=== PATIENT | female | born 1930 | race Caucasian/White ===

== ENCOUNTER 2017-02-12 15:37 | Observation (INO) | payer OTHER ==
--- NOTE | ~2017-02-12 | CO ---
Unit #: [id number] #: [id number] Patient: EDIE LOUISE [id number] [address] [place], [place] [address] [id number] I MR#: [id number] NAME: EDIE LOUISE ROOM: 337 Age: 86 Sex: F Admission Date: 02/12/2017 : 1930 Attending Physician: Hilton Vaughn M.D. Primary Care Physician: Wai Nicole D.O. Requesting Physician: Hilton Vaughn M.D. Consultation Date: 02/13/2017 CONSULTATION REPORT REASON FOR CONSULT Upper cervical spine stenosis. HISTORY OF PRESENT ILLNESS The patient is a very pleasant 86-year-old female with a history of rheumatoid arthritis and other medical history per chart. She reports a clicking sensation in her neck and also in her knees. Medications are as per chart. REVIEW OF SYSTEMS A 14-point review of systems is negative. PHYSICAL EXAMINATION GENERAL: She is awake and alert. MUSCULOSKELETAL: She has a windswept deformity in both hands consistent with long-term rheumatoid arthritis. Her neck is nontender. She does not have any motor or sensory deficits in her upper or lower extremities. There is no clonus. There is no hyperreflexia in her lower extremities. Mendez's would be difficult to evaluate due to the deformity in both hands. Gait is deferred. DIAGNOSTIC STUDIES IMAGING: MRI of the brain shows what appears to be spinal cord compression at the C1-2 level with an atlantodens interval measuring approximately 8 mm. This is presumably pannus formation not optimally visualized on a scan of the brain. CLINICAL IMPRESSION Upper cervical spinal stenosis. RECOMMENDATIONS A dedicated study of the cervical spine. An MRI has been ordered. I would high recommend that the patient be transferred to [facility]. I explained this to the patient because I believe that Dr. Briscoe, who is a neurosurgeon, has an interest in treating upper cervical spine lesions. The patient is at high risk for neurologic compromise. There is likely instability at the C1-2 level that could damage the spinal cord or brainstem. She may require an open mouth excision of the dens and posterior fixation. Dr. Briscoe has experience in this type of upper cervical spinal cord treatment. Thank you for asking me to see Miss Louise. Dictated by... Unit #: [id number] #: [id number] Patient: EDIE LOUISE Melisa Sneed/cameron TD: 02/13/2017 14:13 JOB #: [id number] CONSULTATION REPORT Page 1 of 1 X Arnold Dalton MD X CONSULTATION REPORT
--- NOTE | ~2017-02-12 | CR150 ---
[facility] A Service of [facility] & [facility] RADIOLOGY TEXT RESULTS PATIENT: EDIE PERSON LOCATION: [facility] 337-01 : 31 UNIT #: [id number] AGE: [address]: Hilton Vaughn MD SEX: F ORDER DR: [id number] [facility] [address] [facility]. [place], [place] [address] [id number] I MR#: [id number] Acc #: [id number] NAME: EDIE PERSON : 1930 SEX: F STUDY DATE/TIME: 02/12/2017 17:56 UNIT: CEDOF ROOM: [id number] STUDY DESCRIPTION: CR Hip Min 2 Views Lt Attending Physician: Dawn Haji M.D. Ordering Physician: Dawn Haji M.D. Primary Care Physician: Wai Nicole D.O. MEDICAL IMAGING REPORT This report is preliminary unless electronic signature is present EXAM Left hip HISTORY An 86-year-old female fell in bathroom today, weakness, pain both hips FINDINGS AP pelvis and frog lateral view left hip demonstrates no fracture or dislocation. No significant arthropathy. Extensive arterial vascular calcifications noted. Degenerative disc changes seen in the lower lumbar spine. IMPRESSION Negative left hip Dictated by... Oumou Gates M.D. THIS IS AN ELECTRONICALLY VERIFIED REPORT Oumou Gates M.D. at 02/13/2017 10:59 PM Seth TD: 02/12/2017 23:01 JOB #: [id number] MEDICAL IMAGING REPORT Page 1 of 1 COPY
--- NOTE | ~2017-02-12 | MR18 ---
[facility] A Service of [facility] & [facility] RADIOLOGY TEXT RESULTS PATIENT: EDIE PERSON LOCATION: [facility] 337-01 : 31 UNIT #: [id number] AGE: [address]: Hilton Vaughn MD SEX: F ORDER DR: [id number] [facility] [address]. [place], [place] [address] [id number] MR#: [id number] Acc #: [id number] NAME: EDIE PERSON : 1930 SEX: F STUDY DATE/TIME: 02/12/2017 20:38 UNIT: CEDOF ROOM: 97005 STUDY DESCRIPTION: MR Brain Wo Contrast Attending Physician: Dawn Haji M.D. Ordering Physician: Dawn Haji M.D. Primary Care Physician: Wai Nicole D.O. MRI CENTER REPORT This report is preliminary unless electronic signature is present. EXAM MRI of the brain without HISTORY Hypertension, hyperlipidemia, dementia, immobility presents with altered mental status and abnormal speech. Patient unable to give history because patient is aphasic. History from chart. No cancer history provided. COMMENT MRI of the brain was attempted without contrast using routine 1.5T imaging technique. The study is limited by motion. There is no evidence for a recent ischemic insult on the diffusion series. There is generalized atrophy. Partly seen in the upper cervical spine is considerable degenerative disease. This includes abnormal widening of the anterior atlantodental interval to about 9 mm with some probable abnormal tissue possibly pannus. The posterior arch of C1 is anteriorly displaced with this abnormality and there is approximately moderate flattening of the upper cervical cord to the cervicomedullary junction. I would recommend correlation with a CT scan of the cervical spine if further intervention is contemplated and neurosurgical consultation to determine management options. There is also a component of invagination of the dens into the foramen magnum. The alignment of the clivus and dens is also abnormal. Dens protrudes about 6 mm above the foramen magnum. There is no MRI evidence for intracranial hemorrhage. No gross extraaxial fluid collection. Major intracranial flow voids are grossly maintained. Probably some fluid or inflammatory change in the left side mastoid air cells. Patient has had cataract surgery bilaterally. Moderate white matter disease nonspecific likely due to small vessel disease. Lesions are seen in subcortical deep and periventricular white matter. There is an edematous appearance to the marrow at the level of C2 adjacent to the anterior atlantodental interval. This suggests edema and this would be STS. [facility] A Service of [facility] & [facility] RADIOLOGY TEXT RESULTS PATIENT: EDIE PERSON LOCATION: [facility] 337-01 : 31 UNIT #: [id number] AGE: [address]: Hilton Vaughn MD SEX: F ORDER DR: consistent with some type of inflammatory arthritis such as rheumatoid arthritis. Preliminary wet reading provided overnight by Dr. Higuera 21:14. IMPRESSION 1. No evidence for a recent ischemic insult on the diffusion series. 2. There is abnormal widening of the anterior atlantodental interval to about 9 mm and with this disruption there is anterior migration of the ring of C1 with respect to the odontoid such that there is moderate cord flattening at the level of the upper cervical cord at the cervicomedullary junction. Additionally, there is an abnormal alignment between the clivus and the upper dens. The dens has migrated about 6 mm cephalad through the foramen magnum. Please correlate for any history of underlying inflammatory arthritis such as rheumatoid arthritis. Findings are best pursued with a CT scan of the cervical spine. If patient is a candidate for intervention, suggest neurosurgical consultation to determine management options. ADDENDUM Efforts are currently underway to relay this information verbally to Dawn Haji or covering practitioner. STAT * RESULT I spoke to the covering MD within the half hour. Dictated by... Merle Patel M.D. THIS IS AN ELECTRONICALLY VERIFIED REPORT Merle Patel M.D. at 02/13/2017 9:29 AM JULITA/paulino TD: 02/13/2017 08:25 JOB #: [id number] MRI CENTER REPORT Page 1 of 1 COPY
--- NOTE | ~2017-02-12 | CT71 ---
[facility] A Service of [facility] RADIOLOGY TEXT RESULTS PATIENT: EDIE PERSON LOCATION: CEDOF : 31 UNIT #: [id number] AGE: [address]: Dawn Haji MD SEX: F ORDER DR: [id number] [facility] [address] [place], [place] [address] [id number] MR#: [id number] Acc #: [id number] NAME: EDIE PERSON : 1930 SEX: F STUDY DATE/TIME: 02/12/2017 15:44 UNIT: URIEL ROOM: STUDY DESCRIPTION: CT Head Wo Contrast Attending Physician: Wai Lui M.D. Ordering Physician: Wai Lui M.D. Primary Care Physician: Wai Nicole D.O. MEDICAL IMAGING REPORT This report is preliminary unless electronic signature is present EXAM CT scan of the head without contrast HISTORY Fall in bathroom today with weakness and possible head injury. TECHNIQUE Unenhanced images were obtained through the brain. This CT exam was performed with one or more of the following radiation dose reduction techniques: automatic exposure control, adjustment of mA and/or kV according to patient size, and iterative reconstruction. FINDINGS There is mild generalized atrophy. There are no masses or extraaxial fluid collections or hemorrhage. Slightly prominent space between the odontoid process and the C1 arch is again noted but unchanged from 08/27/2016. IMPRESSION Generalized atrophy. No acute findings. Dictated by... Terrence Ahn M.D. THIS IS AN ELECTRONICALLY VERIFIED REPORT Terrence Ahn M.D. at 02/13/2017 6:05 AM FEL/pcl TD: 02/12/2017 18:58 [facility] A Service [facility] RADIOLOGY TEXT RESULTS PATIENT: EDIE PERSON LOCATION: CEDOF : 31 UNIT #: [id number] AGE: [address]: Dawn Haji MD SEX: F ORDER DR: JOB #: [id number] MEDICAL IMAGING REPORT Page 1 of 1 COPY
--- NOTE | ~2017-02-12 | DS ---
Unit #: [id number] #: [id number] Patient: EDIE PERSON [id number] [address] [address] [id number] I MR#: [id number] NAME: EDIE PERSON ROOM: 337 Age: 86 Sex: F Admission Date: 02/12/2017 : 1930 Discharge Date: 02/13/2017 Attending Physician: Hilton Vaughn M.D. Primary Care Physician: Wai Nicole D.O. DISCHARGE SUMMARY DATE OF TRANSFER TO [facility] February 13, 2017 DISCHARGE DIAGNOSES 1. Odontoid fracture. 2. Toxic metabolic encephalopathy. 3. Gram-negative eunice urinary tract infection. 4. Frequent falls. 5. Macrocytic anemia. 6. History of pulmonary embolism, on Xarelto. 7. History of transient ischemic attack. 8. Essential hypertension. 9. Dyslipidemia. 10. Rheumatoid arthritis. 11. Dementia. 12. History of immobility syndrome. 13. Hypothyroidism. [employer] Dr. Dalton of Spine Surgery. PROCEDURES None. DIAGNOSTIC STUDIES CURRENT LABORATORY: BMP with glucose of 91, BUN 29, creatinine 1, sodium 143, potassium 4.5, chloride 113, CO2 of 23, calcium 8.7, total protein 6.4, albumin 3.3, total bilirubin 0.7, AST 24, ALT 16, and alkaline phosphatase 36. CPK is 109. B12 is 1140, folate is greater than 23.6, and TSH is 2.84. Alcohol was not assessed. PT is 10.9, INR 1, and PTT is 31.5. Troponin was undetectable. CBC with WBC of 5.1, RBC 2.96, hemoglobin 9.9, hematocrit 30, MCV 101.2, MCH 33.5, MCHC 33.1, RDW 12.3, platelets 172,000, and MPV is 8.4. Currently, patient's urine culture shows gram-negative eunice. It is greater than 100,000 colony count. IMAGING: Chest x-ray on February 12, 2017, findings: Cardiomegaly without evidence of vascular congestion. No pneumothorax or pleural effusion seen. No displaced rib fractures. Advanced degenerative changes involving the shoulders bilaterally. Head CT on February 12, 2017, impression: Generalized atrophy. No acute findings. X-ray of the left hip on February 12, 2017, impression: Negative left hip. X-ray of the right hip, impression: Osteopenia. No visible fracture. MRI of the brain on February 12, 2017, impression: No evidence of recent ischemic insulin on the diffusion series. There is abnormal widening of the anterior Unit #: [id number] #: [id number] Patient: EDIE PERSON atlantodental interval to about 9 mm and with this disruption there is anterior migration of the ring of C1 with respect to the odontoid such that there is moderate cord flattening at the level of the upper cervical cord at the cervicomedullary junction. Additionally, there is an abnormal alignment between the clivus and the upper dens. The dens has migrated about 6 mm cephalad through the foramen magnum. HOSPITAL COURSE The patient is an 86-year-old female with a past medical history of dementia, pulmonary embolism, chronically anticoagulated for previous pulmonary embolism with Xarelto, history of TIA, essential hypertension, hyperlipidemia, rheumatoid arthritis, and immobility syndrome, who was brought to the emergency department due to a fall at home. History was obtained from chart review and the ER physician. The patient's son-in-law, Charlie, stated that patient has had increasing memory loss for the past year to 18 months. She was recently hospitalized on August 27, 2016, for altered mental status, sepsis, and UTI, as well as pneumonia. Per Discharge Summary, she was alert and oriented x2. The patient is saying nothing more than okay and no on questioning. In the emergency department, head CT was normal. Chest x-ray was unremarkable as well. She did seem to have a UTI. She was admitted and was treated for toxic metabolic encephalopathy with a UTI. An MRI of the head was done which showed an odontoid fracture. Mr. Dalton, of Spine Surgery, was consulted, who recommended that patient have an MRI of her cervical spine and then be transferred to [facility] where Dr. Briscoe, who has more experience with upper cervical spine cord treatment, will be treating Miss Carpenter. She did not get her dose of Xarelto this morning. Actually, she has not had any of her oral medications as there was concern for dysphagia. Patient has been n.p.o. since then. Patient's blood pressure has been stable without the need of antihypertensive. Her blood pressures have ranged between systolic of 98 to upper of 148 and diastolic ranging from 53 to 80. Patient is on room air. She is not hypoxic, and vital signs are stable. I have spoken with Dr. Call, my counterpart at [facility], who has agreed to accept patient to a telemetry bed. Patient will be discharged there in stable condition after she gets her MRI of the spine done. Dr. Dalton knows about this and recommends this, and any further care will be done there. CONDITION Stable. DISPOSITION Transfer to [facility]. ACTIVITY Patient should have bedrest with a neck collar until she can be assessed by Spine Surgery. DISCHARGE MEDICATIONS Patient is currently n.p.o. She is getting Rocephin 1 gram q.24 hours dosed at 8 o'clock. Her medicines are held until she is evaluated by Speech Therapy. Synthroid 0.025 mg orally daily, Aricept 5 mg orally at bedtime, Zestril 20 mg orally daily, and multivitamin 1 tablet orally Unit #: [id number] #: [id number] Patient: EDIE PERSON daily. Xarelto is held at 20 mg orally daily. Dictated by... Lai Kirby PA-C for Melisa Josue/cameron TD: 02/13/2017 18:50 JOB #: [id number] DISCHARGE SUMMARY Page 1 of 1 X X DISCHARGE SUMMARY
--- NOTE | ~2017-02-12 | HP ---
Unit #: [id number] #: [id number] Patient: EDIE PERSON [id number] [facility]. [place], [place] [address] [id number] E MR#: [id number] NAME: EDIE PERSON ROOM: Age: 86 Sex: F Admission Date: 02/12/2017 : 1930 Attending Physician: Wai Lui M.D. Primary Care Physician: Wai Nicole D.O. HISTORY AND PHYSICAL CHIEF COMPLAINT Urinary tract infection, fall. HISTORY OF PRESENT ILLNESS The patient is an 86-year-old female with a past medical history of dementia, pulmonary embolism, chronic anticoagulation, TIA, hypertension, hyperlipidemia, rheumatoid arthritis, and immobility, who was brought to the emergency department via EMS for evaluation of the above. History is obtained from chart review and discussion with ER staff, as well as telephone conversation with the patient's son-in-law, Charlie. The patient has apparently had increasing memory issues for the past year to 18 months. The patient was hospitalized at [facility] August 27, 2016, for altered mental status, sepsis, urinary tract infection, and pneumonia. Per the Discharge Summary, she was alert and oriented x2 at the time of discharge. Per my conversation with the patient's son-in-law, she at times is not oriented to person, place, or time. He states that she is able to use words but not necessarily carry on a conversation. In the emergency department, the only words she is using are okay and no. The son-in-law states that she would typically use more words than this. She has apparently been refusing to shower as well. In the emergency department, a CT of the head was done and showed nothing acute. Chest x-ray shows nothing acute. Laboratory is essentially unremarkable. Urinalysis shows a possible urinary tract infection. She is being admitted to [facility] for evaluation and further treatment. PAST MEDICAL HISTORY 1. Admission to [facility] August 27, 2016, for sepsis secondary to urinary tract infection and pneumonia, although review of urine culture from August 27 ultimately showed no growth after 48 hours. 2. Pulmonary embolus, on chronic anticoagulation with Xarelto. 3. Transient ischemic attack. 4. Hypertension. 5. Hyperlipidemia. 6. Rheumatoid arthritis. 7. Dementia. 8. Immobility. 9. Hypothyroidism. PAST SURGICAL HISTORY 1. Right hand surgery. Unit #: [id number] #: [id number] Patient: EDIE PERSON 2. Cataract surgery. 3. Hysterectomy. SOCIAL HISTORY The patient lives with her grandson. She has a wheelchair. She is immobile. There is no tobacco or alcohol use. FAMILY HISTORY Noncontributory secondary to age. ALLERGIES No known allergies. HOME MEDICATIONS 1. Multivitamin daily. 2. Xarelto 20 mg daily. 3. Simvastatin 40 mg daily. 4. Levothyroxine 25 mcg daily. 5. Lisinopril 20 mg daily. 6. Aricept 5 mg at bedtime. REVIEW OF SYSTEMS A complete review of systems is negative except as indicated in the History of Present Illness. Per the patient's son-in-law, the patient has had frequent falls with the last fall being this morning in the bathroom. It is unclear the circumstances of the fall. Additionally, she has been complaining of hip pain. PHYSICAL EXAMINATION VITAL SIGNS: Temperature is 97.4, pulse 97, respirations 14, blood pressure 171/77, and oxygen saturation is 98% on room air. GENERAL: Patient is a female who is awake and alert. She is attentive. HEENT: Head is atraumatic. Mucous membranes are moist. NECK: Supple. Trachea is midline. CARDIOVASCULAR: Regular rate and rhythm. LUNGS: Clear to auscultation bilaterally with no increased work of breathing. ABDOMEN: Soft and nontender with bowel sounds present in all four quadrants. EXTREMITIES: Nontender with no pedal edema. NEUROLOGIC: Patient is awake and alert. She is moving all extremities. The only words she uses are "no" and "okay." She follows some commands. PSYCHIATRIC: Difficult to assess. SKIN: Skin of examined areas is warm and dry. DIAGNOSTIC STUDIES LABORATORY: Complete blood count notable for hemoglobin and hematocrit of 10.9 and 32.8, respectively, MCV is 100, and RDW is 12.4. INR is 1. Troponin is less than 0.05. Comprehensive metabolic panel notable for glucose of 126 and BUN and creatinine 36 and 1.1, respectively. Urinalysis notable for nitrite positive, 4+ bacteria, and no squamous cells. IMAGING: Chest x-ray shows nothing acute. CT of the head shows nothing acute. CARDIOLOGY: EKG shows normal sinus rhythm with a rate of 100 beats per Unit #: [id number] #: [id number] Patient: EDIE PERSON minute. ASSESSMENT The patient is an 86-year-old female with: 1. Altered mental status. 2. Frequent falls. 3. Possible urinary tract infection. Review of urine cultures from [facility] show that the patient had a urine culture on August 27, 2016, that grew nothing after 48 hours. There was also a urine culture from May 05, 2016, that showed no growth after 48 hours. 4. Macrocytic anemia. The patient's hemoglobin was 11.8 on August 29, 2016. It is 10.9 today. 5. History of pulmonary embolism, on chronic anticoagulation with Xarelto. 6. History of transient ischemic attack. 7. Hypertension. 8. Hyperlipidemia. 9. Rheumatoid arthritis. 10. Dementia. 11. Immobility. 12. Hypothyroidism. PLAN 1. Admit for observation to intermediate level. 2. N.p.o. until Speech evaluation. 3. Speech Therapy to evaluate and treat. 4. Normal saline at 75 mL/hour. 5. Bedrest. 6. Fall precautions. 7. Bilateral hip series for further evaluation of frequent falls and hip pain. 8. Blood cultures x2. 9. Urine culture and sensitivity on urine in the lab. 10. Rocephin 1 gram IV daily pending results of urine culture. 11. Neuro checks. 12. Check MRI of the brain without contrast for further evaluation of altered mental status and abnormal speech. 13. TSH, B12, and folate. 14. SCDs for DVT prophylaxis. 15. Repeat labs in the morning. 16. Additional workup and consultants based on above. 1. Dictated by Melisa Marie/cameron TD: 02/12/2017 18:40 JOB #: [id number] Unit #: [id number] #: [id number] Patient: EDIE PERSON HISTORY AND PHYSICAL Page 1 of 1 X Dawn Haji MD X HISTORY AND PHYSICAL
--- NOTE | ~2017-02-12 | CR72 ---
[facility] Service of [facility] RADIOLOGY TEXT RESULTS PATIENT: EDIE PERSON LOCATION: [facility] : 31 UNIT #: [id number] AGE: [address]: Wai Lui MD SEX: F ORDER DR: [id number] [facility] [address] [place], [place] [address] [id number] E MR#: [id number] Acc #: [id number] NAME: EDIE PERSON : 1930 SEX: F STUDY DATE/TIME: 02/12/2017 14:38 UNIT: [facility] ROOM: STUDY DESCRIPTION: CR Chest Single View Portable Attending Physician: Wai Lui M.D. Ordering Physician: Wai Lui M.D. Primary Care Physician: Wai Nicole D.O. MEDICAL IMAGING REPORT This report is preliminary unless electronic signature is present EXAM Portable chest radiograph INDICATIONS Shortness of breath started today. Patient also fell in the bathroom today. COMPARISON STUDIES Comparison made to a prior exam from 08/28/2016. FINDINGS Cardiomegaly is identified without any evidence of vascular congestion. Lung volumes appear diminished, likely secondary to poor expiratory effort. No new pneumothorax or pleural effusion is seen. I do not see any displaced rib fractures. Patient does have advanced degenerative changes involving the shoulders bilaterally. Dictated by... Willa Foley M.D. THIS IS AN ELECTRONICALLY VERIFIED REPORT Willa Foley M.D. at 02/12/2017 5:09 PM AFF/pcl TD: 02/12/2017 16:57 JOB #: [id number] MEDICAL IMAGING REPORT Page 1 of 1 COPY
--- NOTE | ~2017-02-12 | MR32 ---
[facility] A Service of [facility] & [facility] RADIOLOGY TEXT RESULTS PATIENT: EDIE PERSON LOCATION: A 337- : 31 UNIT #: [id number] AGE: [address]: Hilton Vaughn MD SEX: F ORDER DR: [id number] [facility] [address]. [place], [place] [address] [id number] I MR#: [id number] Acc #: [id number] NAME: EDIE PERSON : 1930 SEX: F STUDY DATE/TIME: 02/13/2017 19:15 UNIT: A U ROOM: [facility] STUDY DESCRIPTION: MR Cervical Wo Contrast Attending Physician: Hilton Vaughn M.D. Ordering Physician: Hilton Vaughn M.D. Primary Care Physician: Wai Nicole D.O. MRI CENTER REPORT This report is preliminary unless electronic signature is present. EXAM MRI of the cervical spine HISTORY An 86-year-old female with abnormal craniocervical junction. COMPARISON STUDIES MRI of the brain 02/12/[address] cervical spine 02/13/17 FINDINGS Multiplanar, multiecho imaging was performed of the cervical spine utilizing a high field magnet and dedicated protocol. 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 This, however, is not significantly changed when compared to the patient's prior CT angiogram of 08/27/16. There is abnormal anterior subluxation of C1 relative to C2 with widening of the atlantoaxial distance. This also appears chronic, and based on the CT of the cervical spine, there is apparent fusion across the lateral masses of C2 with C1. There is heterogeneous marrow signal within the odontoid, but no evidence of an odontoid fracture. There is abnormal anterior subluxation of C3 on C4, and retrolisthesis of C4 on C5. Due to the abnormal alignment at the atlantoaxial joint and the basilar invagination, there is marked mass effect of the odontoid on the upper cervical cord with essentially no normal CSF space around the cord at this level. No focal cord changes are identified. No syrinx or mass lesions seen. At C2-3, the disk space is maintained. No spinal or foraminal stenosis. At C3-4, there is anterolisthesis of C3 on C4 with mild left C3-4 foraminal stenosis secondary to uncovertebral osteophyte. At C4-5, there STS. [facility] A Service of [facility] & [facility] RADIOLOGY TEXT RESULTS PATIENT: EDIE PERSON LOCATION: C3A 337-01 : 31 UNIT #: [id number] AGE: [address]: Hilton Vaughn MD SEX: F ORDER DR: is broadbased posterior disk protrusion and osteophyte contributing to mild central canal stenosis and bilateral foraminal stenosis. At C5-6, there is also degenerative disk changes with broadbased posterior disk protrusion and osteophyte contributing to mild central canal stenosis and mild bilateral foraminal stenosis. Degenerative disk change seen at C6-7, but no significant spinal or foraminal stenosis. The C7-T1 disk space is unremarkable. Paravertebral soft tissues unremarkable. IMPRESSION 1. 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 This, however, does not appear significantly changed from the patient's prior studies dating back to at least August of 2016, and there appears to be fusion across the C1, C2 articulation based on the CT scan. 2. Heterogeneous marrow signal within the odontoid, but no evidence of an odontoid fracture. 3. Due to the basilar invagination and malalignment at the atlantoaxial joint, there is marked kinking of the upper cervical cord at the cervical medullary junction, but no obvious myelomalacia is identified. Again, this contributes to a severe stenosis at this level. 4. Better appreciated on the stir images, there is some stir hyperintensity within the upper cervical cord at this level, and this may support at least some degree of myelomalacia. Again, this is better seen on the stir sequences. 5. Multilevel degenerative disk changes and cervical malalignment as detailed above. This is most likely on the basis of degenerative disk disease and facet disease. Please see above for lfjht-xu-osiat details. Dictated by... Oumou Gates M.D. THIS IS AN ELECTRONICALLY VERIFIED REPORT Oumou Gates M.D. at 02/14/2017 3:34 PM Seth TD: 02/14/2017 07:09 JOB #: [id number] MRI CENTER REPORT Page 1 of 1 COPY
--- NOTE | ~2017-02-12 | CT52 ---
[facility] A Service of [facility] & [facility] RADIOLOGY TEXT RESULTS PATIENT: EDIE PERSON LOCATION: [facility] 337- : 31 UNIT #: [id number] AGE: [address]: Hilton Vaughn MD SEX: F ORDER DR: [id number] [facility] [address] [place], [place] [address] [id number] I MR#: [id number] Acc #: [id number] NAME: EDIE PERSON : 1930 SEX: F STUDY DATE/TIME: 02/13/2017 11:41 UNIT: [address] ROOM: [facility] STUDY DESCRIPTION: CT Cervical Spine Wo Cont Attending Physician: Hilton Vaughn M.D. Ordering Physician: Hilton Vaughn M.D. Primary Care Physician: Wai Nicole D.O. MEDICAL IMAGING REPORT This report is preliminary unless electronic signature is present EXAM Cervical spine CT without contrast 02/13/[address] cervical spine CT without contrast with multiplanar reformats. This CT exam was performed with one or more of the following radiation dose reduction techniques: automatic exposure control, adjustment of mA and/or kV according to patient size, and iterative reconstruction. COMPARISON STUDIES Brain MRI dated 02/12/[address] angiogram dated 11/27/2015. HISTORY Abnormal appearance of the C1-C2 junction on brain MRI dated 02/12/2017. CT cervical spine suggested for further evaluation. FINDINGS There is atlantodental widening, and prominent basilar impression of the dens into the foramen magnum. There is a slight anterolisthesis at C3-C4 and at C6-C7. There is no acute fracture at any level. The C1 anterior arch is intact and it appears there may be chronic fusion across the C1-C2 articular mass joint. The C1 neural arch is normally intact. The paraspinous tissues are remarkable for dense atherosclerotic vascular calcifications at the carotid bifurcations. The visualized lung apices are unremarkable. Findings are probably unchanged since a head and neck CT angiogram of 08/27/2016. No other substantial spinal canal stenosis is suggested, though there is mild narrowing at several levels. [facility] A Service of [facility] & [facility] RADIOLOGY TEXT RESULTS PATIENT: EDIE PERSON LOCATION: C3A 337-01 : 31 UNIT #: [id number] AGE: [address]: Hilton Vaughn MD SEX: F ORDER DR: At C3-C4, there is probably moderate left foraminal narrowing and at C4-C5, there is probably severe right and [id number] left foraminal narrowing. At C5-C6, there is mild right and bhnwpsho-hv-lynrxw left foraminal narrowing. 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 This is probably actually stable since at least August 2016 with similar findings seen on the head and neck CT angiogram of that date. No fracture or acute abnormality is seen. Degenerative changes at other levels are demonstrated as well. Dictated by... Zain Jain M.D. THIS IS AN ELECTRONICALLY VERIFIED REPORT Zain Jain M.D. at 02/14/2017 5:03 PM TEV/pcl TD: 02/13/2017 22:02 JOB #: [id number] MEDICAL IMAGING REPORT Page 1 of 1 COPY
--- NOTE | ~2017-02-12 | CR151 ---
[facility] A Service of [facility] & [facility] RADIOLOGY TEXT RESULTS PATIENT: EDIE PERSON LOCATION: [facility] 337-01 : 31 UNIT #: [id number] AGE: [address]: Hilton Vaughn MD SEX: F ORDER DR: [id number] [facility] [address] [place], [place] [address] [id number] I MR#: [id number] Acc #: [id number] NAME: EDIE PERSON : 1930 SEX: F STUDY DATE/TIME: 02/12/2017 17:57 UNIT: CED ROOM: [id number] STUDY DESCRIPTION: CR Hip Min 2 Views Rt Attending Physician: Dawn Haji M.D. Ordering Physician: Dawn Haji M.D. Primary Care Physician: Wai Nicole D.O. MEDICAL IMAGING REPORT This report is preliminary unless electronic signature is present EXAM Right hip. HISTORY Weakness and pain both hips. Fell today in bathroom. FINDINGS AP pelvis and frog lateral view of the right hip demonstrates no fracture or dislocation. Generalized osteopenia. Degenerative change lower lumbar spine. Diffuse arteriovascular calcifications. IMPRESSION Osteopenia. No visible fracture. Dictated by... Oumou Gates M.D. THIS IS AN ELECTRONICALLY VERIFIED REPORT Oumou Gates M.D. at 02/13/2017 10:59 PM JONNY/francia TD: 02/12/2017 23:01 JOB #: [id number] MEDICAL IMAGING REPORT Page 1 of 1 COPY
--- NOTE | ~2017-02-12 | EKG ---
PATIENT: EDIE PERSON UNIT #: [id number] Ventricular Rate: 100 BPM Atrial Rate: 100 BPM P-R Interval: 154 ms QRS Duration: 60 ms Q-T Interval: 316 ms QTC Calculation(Bezet): 407 ms P Balaton: 53 degrees Calculated R Balaton: 13 degrees Calculated T Balaton: 35 degrees Diagnosis Line: Normal sinus rhythm Diagnosis Line: Normal ECG Diagnosis Line: When compared with ECG of 27-AUG-2016 16:10, Diagnosis Line: ST no longer elevated in Lateral leads Diagnosis Line: Confirmed by DARYA CARRIZALES MD ([id number]) on 02/12/2017 Diagnosis Line: 11:07:16 PM INTERPRETING MD: ALL CRAIG
[2017-02-12 15:06] LABS: BASOPHIL% 0.3 % (0-2.5); EOSINOPHIL% 0.1 % (0.0-7.0); HEMATOCRIT 32.8 % (35.0-45.0); HEMOGLOBIN 10.9 gm/dL (12.0-16.0); LYMPHOCYTE# 0.4 X10e3 (1.0-3.5); LYMPHOCYTE% 5.6 % (17.0-45.0); MEAN CORPUSCULAR HEMOGLOBIN 33.2 PG (28-34); MEAN CORPUSCULAR HGB CONC 33.2 g/dL (30-36); MEAN PLATELET VOLUME 8.4 FL (6.5-11.5); MONOCYTE# 0.2 X10e3 (0-1.0); MONOCYTE% 2.7 % (3.0-12.0); NEUTROPHIL# 7.2 X10e3 (1.5-7.1); NEUTROPHIL% 91.3 % (40-75); PLATELET COUNT 194 X10e3 (140-420); RED BLOOD COUNT 3.28 X10e (3.90-5.30); RED CELL DISTRIBUTION WIDTH 12.4 % (11.0-15.5); WHITE BLOOD COUNT 7.9 X10e3 (4.0-10.5)
[2017-02-12 15:16] LABS: PROTHROMBIN TIME (PATIENT) 10.9 SECONDS (9.6-11.5)
[2017-02-12 15:21] LABS: DIFF IND NO
[2017-02-12 15:31] LABS: BILIRUBIN, DIRECT 0.1 mg/dL (0.0-0.2); BILIRUBIN,INDIRECT 0.2 mg/dL (0.0-0.9); BILIRUBIN,TOTAL 0.3 mg/dL (0.2-2.0); BUN/CREATININE RATIO 32.72; CALCIUM SERUM 9.4 mg/dL (8.4-10.2); CREATININE SERUM 1.1 mg/dL (0.6-1.4); GLOM FILT RATE Estimated 45.8 mL/min (>60); POTASSIUM 5.1 mmol/L (3.5-5.1); PROTEIN TOTAL SERUM 7.7 g/dL (6.0-8.3)
[2017-02-12 15:32] LABS: POC - CKMB 1.5 ng/mL (0.0-7.9); POC - TROPONIN <0.05 ng/mL (<=0.05)
[~2017-02-12 15:37] MED LIST: ALBUTEROL17 GM INH; ASPIRIN EC81 M1 PO; BONIVA150 MG; CALTRATE 600+D PO; CALTRATE PLUS T1 TAB; COUMADIN2.5 MG PO; COUMADIN5 MG PO; COUMADIN7.5 MG PO; FOLIC ACID; HYDROCODON-ACE1 EAC9 PO; LEVAQUIN250 MG PO; LEVOFLOXACIN500 MG PO; LOVENOX SUBQ; METHOTREXATE2.5 MG; MULTI VITAMIN1 EACH PO; MULTI-VITAMIN1 TAB; PREDNISONE10 MG PO; PRINIVIL20 M1 PO; VITAMIN D-32000 UNI1 PO; VYTORIN 10/10 T1 TAB; ZOCOR80 MG PO
[2017-02-12 15:45] LABS: URINE SOURCE CLEAN CATCH
[2017-02-12 15:52] LABS: URINE APPEARANCE CLEAR; URINE BILIRUBIN NEG (NEG); URINE BLOOD NEG (NEG); URINE COLOR YELLOW; URINE GLUCOSE NEG (NEG); URINE KETONE TRACE (NEG); URINE LEUKOCYTE ESTERASE NEG (NEG); URINE NITRATE POS (NEG); URINE PROTEIN NEG (NEG); URINE SPECIFIC GRAVITY 1.018 (1.003-1.035); URINE UROBILINOGEN 0.2 MG/DL (NEG)
[2017-02-12 15:55] LABS: CULTURE INDICATED? YES; U HYALINE CASTS AUWI 0-2 /[LPF]; URBCS1 AUWI 0-2 /[HPF] (0-2); URINE BACTERIA AUWI 4+ (NEGATIVE); URINE SQUAMOUS EPITHELIAL CELL NONE SEEN /[HPF]
[2017-02-12] MEDS ORDERED: XARELTO20 MG PO (16:39)
[2017-02-12] MEDS ORDERED: SIMVASTATIN40 MG PO (16:39)
[2017-02-12] MEDS ORDERED: MULTI VITAMIN1 EACH PO (16:39)
[2017-02-12] MEDS ORDERED: ARICEPT5 M1 PO (16:40)
[2017-02-12] MEDS ORDERED: LEVOTHYROXINE25 MCG PO (16:40)
[2017-02-12] MEDS ORDERED: LISINOPRIL20 MG PO (16:40)
[2017-02-12 18:31] LABS: CPK (CREATINE PHOSPHOKINASE) 109 IU/L (26-140)
[2017-02-12 18:36] LABS: FOLATE (FOLIC ACID) >23.6 ng/mL (>5.8)
[2017-02-13 04:37] LABS: HEMOGLOBIN 9.9 gm/dL (12.0-16.0); MEAN CELL VOLUME 101.2 FL (83-96); MEAN CORPUSCULAR HEMOGLOBIN 33.5 PG (28-34); MEAN CORPUSCULAR HGB CONC 33.1 g/dL (30-36); MEAN PLATELET VOLUME 8.4 FL (6.5-11.5); RED BLOOD COUNT 2.96 X10e (3.90-5.30); RED CELL DISTRIBUTION WIDTH 12.3 % (11.0-15.5); WHITE BLOOD COUNT 5.1 X10e3 (4.0-10.5)
[2017-02-13 04:57] LABS: ALBUMIN SERUM 3.3 g/dL (3.5-5.0); BILIRUBIN,TOTAL 0.7 mg/dL (0.2-2.0); CALCIUM SERUM 8.7 mg/dL (8.4-10.2); GLOM FILT RATE Estimated 51.4 mL/min (>60); POTASSIUM 4.5 mmol/L (3.5-5.1); PROTEIN TOTAL SERUM 6.4 g/dL (6.0-8.3)
== END 2017-02-13 21:20 ==
LOC: CED 15:37 → CEDOF 17:25 → C3A PCU 02-13 09:17
PROVIDERS: Emergency Medicine; Family Medicine
DX: S12.110A Anterior displaced Type II dens fracture, initial encounter for closed fracture (principal); G92 Toxic encephalopathy; N39.0 Urinary tract infection, site not specified; B96.89 Other specified bacterial agents as the cause of diseases classified elsewhere; W19.XXXA Unspecified fall, initial encounter; Y92.002 Bathroom of unspecified non-institutional (private) residence as the place of occurrence of the external cause; R29.6 Repeated falls; D53.9 Nutritional anemia, unspecified; Z86.711 Personal history of pulmonary embolism; Z79.01 Long term (current) use of anticoagulants; M06.9 Rheumatoid arthritis, unspecified; I10 Essential (primary) hypertension; Z86.73 Personal history of transient ischemic attack (TIA), and cerebral infarction without residual deficits; E78.5 Hyperlipidemia, unspecified; E03.9 Hypothyroidism, unspecified; F03.90 Unspecified dementia, unspecified severity, without behavioral disturbance, psychotic disturbance, mood disturbance, and anxiety; M62.3 Immobility syndrome (paraplegic)
CPT/HCPCS: 36415; 51701; 70450; 70551; 71010; 72125; 72141; 73502; 80048; 80053; 80076; 81003; 82550; 82553; 82607; 82746; 84443; 84484; 85025; 85027; 85610; 87040; 87086; 87088; 87186; 93005; 96360; 96375; 99285; G0378; J0696